=== PATIENT | female | born 1995 | race Caucasian/White ===

== ENCOUNTER 2016-08-21 15:32 | Emergency (ER) | payer OTHER ==
[2016-08-21 15:50] VITALS: BP 132/65
--- NOTE | 2016-08-21 16:36 | UC ---
Throat Pain/Nasal Brian HPI - HPI Summary HPI Summary: [address], PAIN WITH SWALLOWING AND NAUSEA. EMESIS X 1 IN TRIAGE ROOM. FEELING LIGHTHEADED. HAS TONSILLECTOMY SCHEDULED IN 6 DAYS IN [place]. - History of Current Complaint Chief Complaint: UCRespiratory Stated Complaint: SORE THROAT Time Seen by Provider: 08/21/16 16:20 Hx Obtained From: Patient Hx Last Menstrual Period: 3 wks ago Onset/Duration: Gradual Onset, Lasting Days, Still Present Severity: Moderate Pain Intensity: 7 Pain Scale Used: 0-10 Numeric Cough: None Associated Signs & Symptoms: Positive: Negative - Allergies/Home Medications Allergies/Adverse Reactions: Allergies Allergy/AdvReac Type Severity Reaction Status Date / Time No Known Allergies Allergy Verified 08/21/16 15:51 Home Medications: Home Medications ALPRAZolam TAB* [Xanax TAB*] 08/21/16 [History] Sertraline* [Zoloft*] 08/21/16 [History] PMH/Surg Hx/FS Hx/Imm Hx Psychological History Of: Reports: Anxiety - Surgical History Surgical History: None - Family History Known Family History: Negative: Hypertension - Social History Alcohol Use: Rare Substance Use Type: None Smoking Status (MU): Never Smoked Tobacco Review of Systems Constitutional: Negative ENT: Sore Throat Respiratory: Negative Cardiovascular: Negative Gastrointestinal: Negative All Other Systems Reviewed And Are Negative: Yes Physical Exam Triage Information Reviewed: Yes Appearance: Well-Appearing, No Pain Distress, Well-Nourished Vital Signs: Initial Vital Signs Temp 97.7 F 08/21/16 15:45 Pulse 84 08/21/16 15:45 Resp 18 08/21/16 15:45 BP 132/65 08/21/16 15:45 Pulse Ox 98 08/21/16 15:45 Vital Signs Reviewed: Yes Eyes: Positive: Conjunctiva Clear ENT: Positive: Hearing grossly normal, Pharynx normal, TMs normal, Tonsillar swelling. Negative: Tonsillar exudate Neck: Positive: Supple, Tenderness @ - SPFL CERVICAL LAD, Enlarged Nodes @ - SPFL CERVICAL LAD Respiratory Exam: Normal Cardiovascular Exam: Normal Abdomen Description: Positive: Soft Musculoskeletal: Positive: No Edema Neurological: Positive: Alert Psychological: Positive: Age Appropriate Behavior Skin: Negative: rashes Throat Pain/Nasal Course/Dx - Differential Dx/Diagnosis Provider Diagnoses: TONSILLITIS Discharge - Discharge Plan Condition: Stable Disposition: HOME Prescriptions: Amoxicillin CAP* [Amoxicillin 500 MG CAP*] 1,000 mg PO Q12H #40 cap predniSONE TAB* [Deltasone TAB*] 50 mg PO DAILY #5 tab Patient Education Materials: Tonsillitis (ED) Referrals: No Primary Care Phys,NOPCP [Primary Care Provider] - Additional Instructions: NO CLEAR BACTERIAL INFECTION ON EXAM BUT GIVEN YOUR UPCOMING SURGERY WILL COVER WITH ANTIBIOTICS. PREDNISONE TO HELP REDUCE INFLAMMATION. FOLLOW-UP WITH YOUR ENT IN [place] SCHEDULED IN 6 DAYS.
== END 2016-08-21 16:51 | disposition home or self-care (01) ==
LOC: UCEAST 15:32
DX: J03.90 Acute tonsillitis, unspecified (principal); F41.9 Anxiety disorder, unspecified
CPT/HCPCS: 99212; G0463